=== PATIENT | male | born 1995 | race Caucasian/White ===

== ENCOUNTER 2020-02-02 16:10 | Emergency (ER) | payer BC ==
[~2020-02-02] VITALS: Ht 177.8 cm; Wt 125.2 kg
[2020-02-02 16:25] VITALS: Ht 177.8 cm; Wt 125.2 kg
[2020-02-02 17:26] VITALS: BP 154/103
== END 2020-02-02 17:26 | disposition home or self-care (01) ==
LOC: ED 16:10
DX: S67.01XA Crushing injury of right thumb, initial encounter (principal); X58.XXXA Exposure to other specified factors, initial encounter; Y93.89 Activity, other specified; Y92.89 Other specified places as the place of occurrence of the external cause; Y99.8 Other external cause status
CPT/HCPCS: Q0092